=== PATIENT | male | born 1945 | race Two or more races ===

== ENCOUNTER 2025-08-01 06:18 | Emergency (ER) | payer OTHER ==
[~2025-08-01] VITALS: Ht 167.6 cm; Wt 76.1 kg
[2025-08-01] MEDS: ONDANSETRON ODT 4 MG TAB PO ONE (06:30)
--- NOTE | 2025-08-01 06:34 | ED.PDOC ---
GI ASSESSMENT HPI Comments 79-year-old male presents here with 2 months of ongoing right upper quadrant pain. He states it is worse at night. Denies any nausea vomiting with it. He states he has a pain management doctor what it could be and his PCP they thought this could be musculoskeletal. He was told this could also be due to his liver. He states he is here today to have it checked out. Denies any fever or chills. Chief Complaint: Abdominal Pain Time Seen by MD: 08:15 Reviewed Notes: Medications, Allergies Allergies: Coded Allergies: Ceftriaxone (Verified Allergy, Unknown, 08/01/25) Information Source: Patient Mode of Arrival: Ambulatory Timing: Months Duration: Intermittent Prehospital treatment: None Quality: Sharp Vomitus: None Severity: Moderate Recent: None Recent Hx of: None Pain Location: RUQ Modifying Factors: Nothing Associated sign and symptoms: Abdominal Pain (RUQ) Past Medical History PAST MEDICAL HISTORY: HTN Surgical History: Denies all surgeries Family History Family History: Reviewed,noncontributory to illness, No family hx of Cancer, No family hx of DM, No family hx of Heart carlos, No family hx of HTN, No family hx ofKidney carlos, No family hx of Liver carlos, No family hx of Lung carlos, No family hx of Stroke Social History Smoker: Non-Smoker Alcohol: Heavy Drugs: Denies Drug Use Lives In: Home Constitutional: denies: chills, diaphoresis, fatigue, fever, malaise, sweats, weakness, others EENTM: denies: blurred vision, double vision, ear bleeding, ear discharge, ear drainage, ear pain, ear ringing, eye pain, eye redness, hearing loss, mouth pain, mouth swelling, nasal discharge, nose bleeding, nose congestion, nose pain, photophobia, tearing, throat pain, throat swelling, voice changes, others Respiratory: denies: cough, hemoptysis, orthopnea, SOB at rest, shortness of breath, SOB with excertion, stridor, wheezing, others Cardiovascular: denies: chest pain, dizzy spells, diaphoresis, Dyspnea on exertion, edema, irregular heart beat, left arm pain, lightheadedness, palpitations, PND, syncope, others Gastrointestinal: reports: abdominal pain (RUQ); denies: abdomen distended, blood streaked bowels, constipated, diarrhea, dysphagia, difficulty swallowing, hematemesis, melena, nausea, poor appetite, poor fluid intake, rectal bleeding, rectal pain, vomiting, others Genitourinary: denies: burning, dysuria, flank pain, frequency, hematuria, incontinence, penile discharge, penile sore, pain, testicle pain, testicle swelling, urgency, others Neurological: denies: dizziness, fainting, headache, left sided numbness, left sided weakness, numbness, paresthesia, pre-existing deficit, right sided numbness, right sided weakness, seizure, speech problems, tingling, tremors, weakness, others Musculoskeletal: reports: back pain; denies: gout, joint pain, joint swelling, muscle pain, muscle stiffness, neck pain, others Integumetry: denies: bruises, change in color, change in hair/nails, dryness, laceration, lesions, lumps, rash, wounds, others Allergic/Immunocompromised: denies: Difficulty Healing, Frequent Infections, Hives, Itching, others Hematologic/Lymphatic: denies: anemia, blood clots, easy bleeding, easy bruising, swollen glands, others Endocrine: denies: excessive hunger, excessive sweating, excessive thirst, excessive urination, flushing, intolerance to cold, intolerance to heat, unexplained weight gain, unexplained weight loss, others Psychiatric: denies: anxiety, bipolar disorder, depression, hopeless, panic disorder, schizophrenia, sleepless, suicidal, others All Other Systems: Reviewed and Negative Physical Exam General Appearance: No Apparent Distress, Normal HEENT: Normal ENT Inspection, Pharynx Normal, TMs Normal Neck: Full Range of Motion, Non-Tender, Normal, Normal Inspection Respiratory: Chest Non-Tender, Lungs Clear, No Accessory Muscle Use, No Respiratory Distress, Normal Breath Sounds Cardiovascular: No Edema, No JVD, No Murmur, No Gallop, Normal Peripheral Pulses, Regular Rate/Rhythm Breast Exam: Deferred Gastrointestinal: No Organomegaly, No Pulsatile Mass, Normal Bowel Sounds, Soft, Tenderness (Right upper quadrant tenderness to palpation) Genitalia: Deferred Pelvic: Deferred Rectal: Deferred Extremities: No calf tenderness, Normal capillary refill, Normal inspection, Normal range of motion, Non-tender, No pedal edema Musculoskeletal : Apperance: Normal Neurologic: Alert, photogeologist II-XII nml as Tested, No Motor Deficits, Normal Affect, Normal Mood, No Sensory Deficits Cerebellar Function: Normal Reflexes: Normal Skin: Dry, Normal Color, Warm Lymphatic: No Adenopathy Was a procedure done? Was a procedure done?: No GI differential Dx Differential Diagnosis: Other Other Differential Diagnosis Cholecystitis, cholelithiasis, pancreatitis, gastritis, common bile duct stone X-Ray, Labs, Meds, VS Vital Signs Date Time Temp Pulse Resp B/P (MAP) Pulse Ox O2 Delivery O2 Flow Rate FiO2 08/01/25 07:48 60 16 97 Room Air* 0 21 08/01/25 07:47 97.8 60 16 146/76 (99) 97 97.8 08/01/25 06:22 97.0 78 18 150/82 96 97.0 Lab Test 08/01/25 06:43 Range/Units White Blood Count 5.9 4.4-10.8 10^3/uL Red Blood Count 4.96 4.5-5.90 10^6/uL Hemoglobin 14.7 13.5-17.5 g/dL Hematocrit 43.9 41.0-53.0 % Mean Corpuscular Volume 88.5 80.0-100.0 fL Mean Corpuscular Hemoglobin 29.6 28.0-32.0 pg Mean Corpuscular Hemoglobin Concent 33.4 32.0-36.0 g/dL Red Cell Distribution Width 13.0 11.8-14.3 % Platelet Count 207 140-450 10^3/uL Mean Platelet Volume 8.1 6.9-10.8 fL Neutrophils (%) (Auto) 64.4 37.0-80.0 % Lymphocytes (%) (Auto) 27.0 10.0-50.0 % Monocytes (%) (Auto) 7.2 0.0-12.0 % Eosinophils (%) (Auto) 1.1 0.0-7.0 % Basophils (%) (Auto) 0.3 0.0-2.0 % Neutrophils # (Auto) 3.8 1.6-8.6 10 ^3/uL Lymphocytes # (Auto) 1.6 0.4-5.4 10 ^3/uL Monocytes # (Auto) 0.4 0-1.3 10 ^3/uL Eosinophils # (Auto) 0.1 0-0.8 10 ^3/uL Basophils # (Auto) 0 0-0.2 10 ^3/uL Nucleated Red Blood Cells 0.0 % Sodium Level 141 136-145 mmol/L Potassium Level 4.2 3.5-5.1 mmol/L Chloride Level 103 98-107 mmol/L Carbon Dioxide Level 29 20-31 mmol/L Anion Gap 9 5-15 Blood Urea Nitrogen 17 9-23 mg/dL Creatinine 0.99 0.700-1.30 mg/dL Glomerular Filtration Rate Calc 77 >90 mL/min BUN/Creatinine Ratio 17.2 10.0-20.0 Serum Glucose 196 H 74-106 mg/dL Calcium Level 10.3 8.7-10.4 mg/dL Total Bilirubin 0.7 0.2-1.0 mg/dL Aspartate Amino Transferase (AST) 35 13-40 U/L Alanine Aminotransferase (ALT) 32 7-40 U/L Alkaline Phosphatase 132 H 46-116 U/L Total Protein 7.2 5.7-8.2 g/dL Albumin 4.5 3.2-4.8 g/dL Lipase 36 12-53 U/L [place] [address] Ph: [phone] DIAGNOSTIC IMAGING Diagnostic Imaging Report : [id number] Signed PATIENT: GILDARDO GONZALEZ ACCT: [id number] UNIT: [id number] : 1945 LOC: ER ROOM / BED: / AGE / SEX: 79 / M ADM STATUS: REG ER SERVICE 0630 ORDERING PHYSICIAN: TRUPTI RICO MD PROCEDURE(s): GBUS - GALLBLADDER REASON: Rule out cholecystitis ORDER NUMBER(s): [id number], ACCESSION NUMBER(s): [id number] INDICATION: Rule out cholecystitis TECHNIQUE: Multiple real-time sonographic images were obtained of the right upper quadrant. COMPARISON: None FINDINGS: The liver demonstrates homogeneous echotexture without focal mass lesions. The liver measures 14.6 cm. There is no intrahepatic or extrahepatic ductal dilatation. The common duct measures 0.7 cm. Cholelithiasis. The gallbladder wall measures 0.4 cm and is within normal limits. The right kidney measures 8.9 cm. The right kidney is normal in contour, size, and shape. The echogenicity is normal. There is no hydronephrosis. The pancreas is not well visualized due to overlying bowel gas. IMPRESSION: Cholelithiasis. ATED BY: EDILBERTO MOFFETT MD DICTATED DATE/TIME: 08/01/25806 SIGNED BY: EDILBERTO MOFFETT MD SIGNED DATE/TIME: 08/01/25806 CC: 79-year-old male presents here with right upper quadrant pain that he has had for 2 months. He states it is worse at night. He has no history of cholecystectomy or gallstones in the past. On my examination he is tender to the right upper quadrant. Vitals are stable. I am concerned for possible cholelithiasis, cholecystitis, pancreatitis, common bile duct stone. Therefore an ultrasound of the gallbladder has been ordered. Including a CBC CMP, lipase. Patient has no nausea no vomiting. He states he took hydrocodone earlier this morning for his chronic pain which has helped this pain also. CBC has returned with a normal WBC count. To CMP and lipase within normal limits. Ultrasound of the gallbladder does demonstrate cholelithiasis with no evidence of cholecystitis. Doubt common bile duct stone at this time. I talked with the patient extensively. At this time he does have a PCP. Advised him to avoid fatty foods. Advised him if he has any fevers vomiting worsening abdominal pain to return back to the ER for further care. Otherwise he should follow up his regular doctor for outpatient surgical consult. I have given him a copy of his ultrasound today. Patient is agreeable to this. Patient is generally well-appearing on my examination and has not required any nausea medicine or pain medicine in the ER. Time of 1ST Reevaluation: 08:45 Reevaluation 1ST: Unchanged Patient Education/Counseling: Diagnosis, Treatment Family Education/Counseling: No Family Present SEPSIS Sepsis Screen Date sepsis recognized/suspect: Aug 01, 2025 Time Sepsis recognized/suspect: 621 Recent Procedure: No On Antibiotic Therapy: No Respiratory Rate >20: No Heart Rate >90: No Temp<36 C (96.8 F) or >38.3 C: No SBP <90 or MAP <65 mmHG: No New Acute Mental Status Change: No Is the patient on CPAP, BIPAP,: No Physician Orders Gallbladder (08/01/25 06:30) Vital Signs Date Time Temp Pulse Resp B/P (MAP) Pulse Ox O2 Delivery O2 Flow Rate FiO2 08/01/25 07:48 60 16 97 Room Air* 0 21 08/01/25 07:47 97.8 60 16 146/76 (99) 97 97.8 08/01/25 06:22 97.0 78 18 150/82 96 97.0 Laboratory Tests Test 08/01/25 06:43 White Blood Count 5.9 10^3/uL (4.4-10.8) Departure 1 Departure Time of Disposition: 08:49 Impression: Primary Impression: Cholelithiasis Qualified Codes: K80.20 - Calculus of gallbladder without cholecystitis without obstruction Disposition: 01 HOME / SELF CARE / HOMELESS Condition: Stable Additional Instructions: Follow up with the primary care physician in 2-3 days. Return to the ER if symptoms worsen or persist. If you any point develops fevers, worsening abdominal pain, vomiting please return immediately to the ER. [place] [address] Ph: [phone] DIAGNOSTIC IMAGING Diagnostic Imaging Report : [id number] Signed PATIENT: GILDARDO GONZALEZ ACCT: [id number] UNIT: [id number] : 1945 LOC: ER ROOM / BED: / AGE / SEX: 79 / M ADM STATUS: REG ER SERVICE 9 ORDERING PHYSICIAN: TRUPTI RICO MD PROCEDURE(s): GBUS - GALLBLADDER REASON: Rule out cholecystitis ORDER NUMBER(s): [id number], ACCESSION NUMBER(s): [id number] INDICATION: Rule out cholecystitis TECHNIQUE: Multiple real-time sonographic images were obtained of the right upper quadrant. COMPARISON: None FINDINGS: The liver demonstrates homogeneous echotexture without focal mass lesions. The liver measures 14.6 cm. There is no intrahepatic or extrahepatic ductal dilatation. The common duct measures 0.7 cm. Cholelithiasis. The gallbladder wall measures 0.4 cm and is within normal limits. The right kidney measures 8.9 cm. The right kidney is normal in contour, size, and shape. The echogenicity is normal. There is no hydronephrosis. The pancreas is not well visualized due to overlying bowel gas. IMPRESSION: Cholelithiasis. ATED BY: EDILBERTO MOFFETT MD DICTATED DATE/TIME: 08/01/25806 SIGNED BY: EDILBERTO MOFFETT MD SIGNED DATE/TIME: 08/01/25806 CC: Critical Care Note Critical Care Time?: No Stability Stability form required: No Heart Score Heart Score: Heart Score Response (Comments) Value History N/A 0 EKG N/A 0 Age N/A 0 Risk Factors N/A 0 Troponin N/A 0 Total 0 I personally scribed for TRUPTI RICO MD ([email or web address]) on 08/01/25 at 06:34. Electronically submitted by Palma Freitas ([email or web address]). I personally scribed for TRUPTI RICO MD ([email or web address]) on 08/01/25 at 08:12. Electronically submitted by Palma Freitas ([email or web address]). I personally scribed for TRUPTI RICO MD ([email or web address]) on 08/01/25 at 08:36. Electronically submitted by Palma Freitas ([email or web address]). I personally scribed for TRUPTI RICO MD ([email or web address]) on 08/01/25 at 08:39. Electronically submitted by Palma Freitas ([email or web address]). TRUPTI RICO MD Aug 01, 2025 06:34
[2025-08-01 07:12] LABS: Hematocrit 43.9 % (41.0-53.0); Hemoglobin 14.7 g/dL (13.5-17.5); Mean Corpuscular Hemoglobin 29.6 pg (28.0-32.0); Mean Corpuscular Volume 88.5 fL (80.0-100.0); Nucleated Red Blood Cells % 0.0 %
[2025-08-01 07:35] LABS: Alanine Aminotransferase 32 U/L (7-40); Albumin 4.5 g/dL (3.2-4.8); Anion Gap 9 (5-15); BUN/Creatinine Ratio 17.2 (10.0-20.0); Blood Urea Nitrogen 17 mg/dL (9-23); Calcium 10.3 mg/dL (8.7-10.4); Carbon Dioxide 29 mmol/L (20-31); Chloride 103 mmol/L (98-107); Lipase 36 U/L (12-53); Potassium 4.2 mmol/L (3.5-5.1); Sodium 141 mmol/L (136-145); Total Protein 7.2 g/dL (5.7-8.2)
[2025-08-01 07:36] LABS: Bilirubin, Total 0.7 mg/dL (0.2-1.0)
[2025-08-01 07:45] LABS: Alkaline Phosphatase 132 U/L (46-116); Glucose 196 mg/dL (74-106)
[2025-08-01 07:48] VITALS: PULSE 60; RESP 16; O2SAT 97
--- NOTE | 2025-08-01 08:10 | DVH ---
INDICATION: Rule out cholecystitis TECHNIQUE: Multiple real-time sonographic images were obtained of the right upper quadrant. COMPARISON: None FINDINGS: The liver demonstrates homogeneous echotexture without focal mass lesions. The liver measu res 14.6 cm. There is no intrahepatic or extrahepatic ductal dilatation. The common duct measures 0.7 cm. Cholelithiasis. The gallbladder wall measures 0.4 cm and is within normal limits. The right kidney measures 8.9 cm. The right kidney is normal in contour, size, and shape. The echogen icity is normal. There is no hydronephrosis. The pancreas is not well visualized due to overlying bowel gas. IMPRESSION: Cholelithiasis.
[2025-08-01 09:08] VITALS: BP 136/74; PULSE 80; RESP 18; TEMP 97; O2SAT 98
== END 2025-08-01 09:12 | disposition home or self-care (01) ==
LOC: ER 06:24
DX: K80.20 Calculus of gallbladder without cholecystitis without obstruction (principal); F10.90 Alcohol use, unspecified, uncomplicated; I10 Essential (primary) hypertension; Z88.1 Allergy status to other antibiotic agents; Y90.9 Presence of alcohol in blood, level not specified
CPT/HCPCS: 36415; 76705; 80053; 83690; 85025; Q0162